=== PATIENT | female | born 1960 | race Caucasian/White ===

== ENCOUNTER 2019-04-19 14:10 | Emergency (ER) | payer BC ==
[2019-04-19 14:26] VITALS: BP 121/75
[2019-04-19] MEDS ORDERED: diPHENhydraMINE IV* 50 MG/ML 1 ml VIAL (BENADRYL) IV ONE (14:44)
[2019-04-19] MEDS ORDERED: methylPREDNISolone 125 MG* 2 ML VIAL IV ONE (14:44)
[2019-04-19] MEDS ORDERED: NS 0.9% 1000 ML** 1,000 ML IV ONE (14:45)
[2019-04-19] MEDS ORDERED: EPINEPHRINE 1 MG/ML 1 ML VIAL IM ONE (15:05)
--- NOTE | 2019-04-19 15:12 | ED ---
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 States she had desensitization shots 3 years ago but was advised to carry Epi pen but never did it. She took 50 mg PO Benadryl at home prior to coming to . Denies tongue/lip swelling/SOB/CP/ bronchospasm, VSS, saturating 97% on RA - History of Current Complaint Chief Complaint: UCAllergicReaction Hx Obtained From: Patient Onset/Duration: Sudden Onset Severity Initially: Moderate Severity Currently: Moderate Pain Intensity: 7 Pain Scale Used: 0-10 Numeric - Allergies/Home Medications Allergies/Adverse Reactions: Allergies Allergy/AdvReac Type Severity Reaction Status Date / Time BEES Allergy Hives Uncoded 04/19/19 14:27 Home Medications: Home Medications Cyanocobalamin (Vitamin B-12) [Vitamin B-12] 1,000 mcg PO DAILY 04/19/19 [ History Confirmed 04/19/19] PMH/Surg Hx/FS Hx/Imm Hx Previously Healthy: Yes - Cancer History Hx Chemotherapy: No Hx Radiation Therapy: No Infectious Disease History: No Infectious Disease History: Denies: Traveled Outside the [place] in Last 30 Days - Social History Alcohol Use: Rare Substance Use Type: Reports: None Smoking Status (MU): Never Smoked Tobacco Review of Systems Constitutional: Negative Eyes: Negative ENT: Negative Cardiovascular: Negative Respiratory: Negative Gastrointestinal: Negative Genitourinary: Negative Musculoskeletal: Negative Skin: Other - bee sting All Other Systems Reviewed And Are Negative: Yes Physical Exam - Summary Physical Exam Summary: Vital Signs Reviewed: Yes Eye Exam: Normal Eyes: Positive: Conjunctiva Clear ENT: Positive: Normal ENT inspection Neck: Positive: Supple Respiratory Exam: Normal Respiratory: Positive: Lungs clear, Normal breath sounds. Negative: Crackles, Rhonchi, Stridor, Wheezing Cardiovascular Exam: Normal Cardiovascular: Positive: RRR Abdomen: NT/ND Musculoskeletal Exam: Normal Neurological Exam: Normal Psychological Exam: Normal Skin Exam: right lateral ankle swelling circular erythematous, swollen skin lesion size 5-6cm, pruritic Vital Signs On Initial Exam: Initial Vitals Temp Pulse Resp BP Pulse Ox 37.2 C 62 18 121/75 97 04/19/19 14:16 04/19/19 14:16 04/19/19 14:16 04/19/19 14:16 04/19/19 14:16 Diagnostics - Vital Signs Vital Signs Temp Pulse Resp BP Pulse Ox 04/19/19 14:50 59 18 121/75 100 04/19/19 14:16 37.2 C 62 18 121/75 97 - Laboratory Lab Statement: Any lab studies that have been ordered have been reviewed, and results considered in the medical decision making process. Allergic Reaction Course/Dx - Course Assessment/Plan: Gave O2 2L NC Solumedrol 125mg Iv x 1, Benadryl 50mg IV x 1, NS 1L, Epi on standby, EMS called, pt transferred to [facility] [place], charge nurse Marva made aware, VS WNL and stable when pt transferred - Diagnoses Provider Diagnoses: Allergic reaction to bee sting Discharge ED - Sign-Out/Discharge Documenting (check all that apply): Patient Departure All imaging exams completed and their final reports reviewed: No Studies - Discharge Plan Condition: Stable Disposition: TRANS HIGHER LVL OF CARE FAC Referrals: Kristie Moise MD [Primary Care Provider] - - Billing Disposition and Condition Condition: STABLE Disposition: Trans Higher Lvl of Care Fac
== END 2019-04-19 14:54 | disposition short-term general hospital (02) ==
LOC: UCEAST 14:10
DX: T63.441A Toxic effect of venom of bees, accidental (unintentional), initial encounter (principal); R60.1 Generalized edema; Z91.030 Bee allergy status; Y92.9 Unspecified place or not applicable
CPT/HCPCS: 96360; 96375; 96376; 99213; G0463; J1200; J2930

== ENCOUNTER 2019-04-19 15:10 | Emergency (ER) | payer BC ==
[2019-04-19 17:18] VITALS: BP 114/69
--- NOTE | 2019-04-19 17:21 | ED ---
Allergic Reaction/Systemic - HPI Summary HPI Summary: This patient is a 58-year-old female who presents to the ED with allergic reaction. Patient states she was stung by a bee at home at approximately 12 PM. She did take 50 mg's Benadryl at home. She drove herself to urgent care at 2 PM. Local reaction to the right foot. She was given in the urgent care, Solu-Medrol and 50 g Benadryl, but no epinephrine. She denies any shortness of breath or other respiratory symptoms. She states she has had other localized reactions from a bee, however has never had anaphylaxis. She is comfortable on examination. She denies any throat symptoms, including dysphagia or odynophagia. - History of Current Complaint Chief Complaint: EDAllergicReaction Time Seen by Provider: 04/19/19 15:13 Hx Obtained From: Patient Onset/Duration: Sudden Onset, Started hours ago Timing: Constant Severity Initially: Moderate Severity Currently: Mild Pain Intensity: 0 Pain Scale Used: 0-10 Numeric Character: Swelling Alleviating Factor(s): Cold, Antihistamines Associated Signs And Symptoms: Positive: Negative - Related Hx Possible Reaction To: Insect - Allergies/Home Medications Allergies/Adverse Reactions: Allergies Allergy/AdvReac Type Severity Reaction Status Date / Time BEES Allergy Hives Uncoded 04/19/19 14:27 PMH/Surg Hx/FS Hx/Imm Hx Previously Healthy: Yes - Cancer History Hx Chemotherapy: No Hx Radiation Therapy: No - Immunization History Hx Pertussis Vaccination: No Immunizations Up to Date: Yes Infectious Disease History: No Infectious Disease History: Denies: Traveled Outside the [place] in Last 30 Days - Social History Occupation: Employed Full-time Lives: With Family Alcohol Use: Rare Hx Substance Use: No Substance Use Type: Reports: None Hx Tobacco Use: Yes Smoking Status (MU): Light Every Day Tobacco Smoker Review of Systems Negative: Fever, Chills, Fatigue, Skin Diaphoresis Negative: Palpitations, Chest Pain Negative: Shortness Of Breath, Cough Negative: Arthralgia, Myalgia Positive: Other - right dorsal foot erythema and swelling Neurological: Negative All Other Systems Reviewed And Are Negative: Yes Physical Exam Triage Information Reviewed: Yes Vital Signs On Initial Exam: Initial Vitals Temp Pulse Resp BP Pulse Ox 97.1 F 61 16 112/72 98 04/19/19 15:16 04/19/19 15:16 04/19/19 15:16 04/19/19 15:16 04/19/19 15:16 Vital Signs Reviewed: Yes Appearance: Positive: Well-Appearing, Well-Nourished Skin: Positive: Skin Color Reflects Adequate Perfusion, Other - right dorsal foot erythema and swelling Head/Face: Positive: Normal Head/Face Inspection Eyes: Positive: EOMI, Conjunctiva Clear Neck: Positive: Supple, No Lymphadenopathy Respiratory/Lung Sounds: Positive: Clear to Auscultation, Breath Sounds Present Cardiovascular: Positive: RRR, Pulses are Symmetrical in both Upper and Lower Extremities Musculoskeletal: Positive: Normal, Strength/ROM Intact Neurological: Positive: Speech Normal Psychiatric: Positive: Affect/Mood Appropriate Procedures - Sedation Patient Received Moderate/Deep Sedation with Procedure: No Diagnostics - Vital Signs Vital Signs Temp Pulse Resp BP Pulse Ox 04/19/19 17:17 97.6 F 59 17 114/69 99 04/19/19 15:16 97.1 F 61 16 112/72 98 - Laboratory Lab Statement: Any lab studies that have been ordered have been reviewed, and results considered in the medical decision making process. Allergic Reaction Course/Dx - Course Course Of Treatment: During his course of treatment, the patient is evaluated for a bee sting. There is an erythematous area to the right foot with slight swelling (location of bee sting). Patient has ice applied. She states the swelling has decreased in amount since arriving to the ED. She was given Solu- Medrol and Benadryl at the urgent care prior to arrival here to the ED. She was not given epinephrine. She denies any throat symptoms or difficulty breathing. She is observed for approximately 1.5 hours. She is discharged in good condition with a reduction of swelling to the right foot. - Diagnoses Differential Diagnosis/HQI/PQRI: Positive: Local Allergic Reaction, Urticaria Provider Diagnoses: Bee sting Discharge ED - Sign-Out/Discharge Documenting (check all that apply): Patient Departure - Discharge Plan Condition: Stable Disposition: HOME Patient Education Materials: Insect Bite or Sting (ED) Referrals: Kristie Moise MD [Primary Care Provider] - Additional Instructions: Take benadryl up to every 6 hours as needed for swelling and discomfort If you develop any worsening or changing symptoms, return to the ED - Billing Disposition and Condition Condition: STABLE Disposition: Home
== END 2019-04-19 17:16 | disposition home or self-care (01) ==
LOC: ED 15:10
DX: T63.441A Toxic effect of venom of bees, accidental (unintentional), initial encounter (principal); Y92.9 Unspecified place or not applicable; F17.200 Nicotine dependence, unspecified, uncomplicated; Z79.899 Other long term (current) drug therapy
CPT/HCPCS: 99282